=== PATIENT | female | born 1985 | race Two or more races ===

== ENCOUNTER 2021-11-12 15:13 | Emergency (ER) | payer OTHER, SELFPAY ==
--- NOTE | ~2021-11-12 | XR_ITS ---
EXAMINATION: XR CHEST CLINICAL INFORMATION: Chest tightness. COMPARISON: None TECHNIQUE: Frontal view of the chest was obtained. FINDINGS: There is subtle groundglass opacity left infrahilar region likely lingula left upper lobe. There is no air bronchogram or lobar segmental airspace opacity or effusion. The costophrenic sulci are clear. The heart is normal in size. The hilar and mediastinal contours are normal. No pneumothorax or pleural reaction or pneumomediastinum. XR/XR chest 1V IMPRESSION: Subtle groundglass opacity left infrahilar region likely lingula left upper lobe. Lungs otherwise clear.
[2021-11-12 15:49] VITALS: BP 120/77; PULSE 98; RESP 18; TEMP 37.5; O2SAT 98; BMI 25.6
--- NOTE | 2021-11-12 15:52 | ECG_ITS ---
Test Reason : CHEST TIGHTNESS Blood Pressure : / mmHG Vent. Rate : 100 BPM Atrial Rate : 100 BPM P-R Int : 114 ms QRS Dur : 116 ms QT Int : 346 ms P-R-T Axes : 060 078 -04 degrees QTc Int : 446 ms Normal sinus rhythm Right bundle branch block T wave abnormality, consider inferior ischemia Abnormal ECG No previous ECGs available Referred By: Generic ED Physician Electronically Signed By:FLOR MELENDEZ MD
[2021-11-12 17:55] LABS: Eosinophils Percent Auto 0.4 % (0-4); Hematocrit 42.9 % (37.0-47.0); Hemoglobin 14.1 g/dl (12.0-16.0); Lymphocytes Percent Auto 40.7 % (20-40); MANUAL DIFF FLAG SCAN; Mean Corpuscular HGB Conc 32.9 g/dl (31.0-35.0); Mean Corpuscular Hemoglobin 30.3 pg (27.0-33.0); Mean Corpuscular Volume 92.1 fL (80.0-98.0); Mean Platelet Volume 10.5 fL (9.4-12.3); Monocytes Absolute Auto 0.2 X10*3/uL (0.1-1.2); Monocytes Percent Auto 7.4 % (2-11); Neutrophils Absolute Auto 1.3 x10*3/uL (2.0-8.3); Neutrophils Percent Auto 51.5 % (45-73); Platelet Count 166 X10*3/uL (160-400); Red Blood Count 4.66 X10*6/uL (4.20-5.50); SCAN SMEAR FLAG 1
[2021-11-12 17:59] LABS: White Blood Count 2.4 X10*3/uL (4.8-10.8)
[2021-11-12 18:13] LABS: Anion Gap 13 (12-20); Blood Urea Nitrogen 8 mg/dL (9-16); Carbon Dioxide 27 mmol/L (22-29); Chloride 103 mmol/L (96-108); Creatinine Clr Calc Pharmacy 94.6; Estimated Glomerular Filt Rate > 60; Glucose Random 150 mg/dL (60-115); Potassium 3.4 mmol/L (3.3-5.1); SLIDE REVIEW VERIFIED; Sodium 140 mmol/L (135-145)
[2021-11-12 18:16] LABS: Troponin-I High Sensitivity < 3.5 ng/L (<3.5-17.0)
[2021-11-12] MEDS: Acetaminophen 325 MG TABLET 650 MG PO (18:25)
--- NOTE | 2021-11-12 19:29 | ED_ITS ---
HPI - URI/Sore Throat General Chief Complaint: Upper Respiratory Symptoms Stated Complaint: covid + fever cough chest tightness Time Seen by Provider: 11/12/21 19:28 Source: patient Mode of arrival: ambulatory Limitations: no limitations History of Present Illness HPI Narrative: cough, fever and chest tightness. patient has been sick for 7 days and she was tested 5 days ago. Patient states she is breast feeding her daughter. She is not vaccinated. MD elicited complaint: fever, cough and sore throat Onset (ago): day(s) Consistency: constant Severity: mild Associated symptoms: fever, chills and cough Related Data Previous Rx's Medication Instructions Recorded diphenhydramine HCl 25 mg capsule 25 mg PO TID PRN #20 cap 11/12/21 (Benadryl) Allergies Allergy/AdvReac Type Severity Reaction Status Date / Time ciprofloxacin [From Cipro] Allergy Severe complete Verified 05/08/21 17:39 facial swelling Review of Systems Constitutional: Constitutional: Reports no additional constitutional complaints Eyes: Eyes: Reports no additional eye complaints ENT: Denies dizziness Cardiovascular: Cardiovascular: Reports no additional cardiovascular complaints Respiratory: Respiratory: Reports as per HPI Gastrointestinal: Gastrointestinal: Reports no additional gastrointestinal complaints Genitourinary: Genitourinary: Reports no additional female genitourinary complaints Musculoskeletal: Musculoskeletal: Reports no additional musculoskeletal complaints Integumentary/Breasts: Skin/Breast: Denies rash Neurologic: Reports system reviewed and no additional complaints, except as documented, Denies dizziness and Denies Sensory deficit (Neuro) Psychiatric: Psychiatric: Denies anxiety PMFSH Past Medical History Medical History Hypovitaminosis D Surgical History No pertinent past surgical history Family History Family History Mother No problems noted. Father No problems noted. Social History Social History Housing: Apartment Alcohol intake: former Patient Tobacco Use Status: Never used Tobacco e-Cigarette/Vaping Use: Never Used Second Hand Smoke Exposure: No Advance Directives: No Advance Directives Information Provided: Yes service: No Current occupational status: unemployed Physical Exam Vital Signs: Vital Signs: Last Vital Signs Temp 99.5 F 11/12/21 15:49 Pulse 98 11/12/21 15:49 Resp 18 11/12/21 15:49 BP 120/77 11/12/21 15:49 Pulse Ox 98 11/12/21 15:49 BMI result Body Mass Index 25.6 Const: General: healthy appearing Nutritional Appearance: average body habitus Orientation/consciousness: oriented to person and patient oriented x3 Limitations: no limitations HENMT: Head: Yes normal to inspection Ears: external ears normal General nose exam: Normal external nose present Mouth: Normal oral and palatal mucosa present and oropharynx normal Throat: Yes posterior oropharynx normal Eyes: General: appearance normal, both eyes and all related structures Neck: Other: supple Neck: Yes normal visual inspection Chest: Chest palpation & inspection: normal inspection of the chest Resp: Auscultation: clear to auscultation bilaterally Cardio: Jugular venous distension: no JVD Rate: regular rate Rhythm: regular rhythm Heart sounds: S1 normal heart sound present and S2 normal heart sound present GI: Inspection: Yes normal to inspection Palpation (GI): Soft to palpation, nontender and No hepatosplenomegaly present Auscultation: normal bowel sounds : General: Yes no CVA tenderness Back/Spine/Pelvis: Back: no CVA tenderness Skin: General skin exam: no rashes or lesions noted Neuro: General: oriented to person and patient oriented x3 Cranial nerves: Yes CN's II-XII intact bilaterally Motor exam (neuro): 5/5 motor strength present throughout Sensory Exam: No Sensory deficit (Neuro) Extrem: General: Yes normal to inspection Psych: Appearance: grossly normal Course Reevaluation(s) Reevaluation #1: patient with subtle chest xray findings of COVID, however, her vitals and exam are stable. Time: 19:37 MDM - URI/Sore Throat Lab Data Result diagrams: 11/12/21 17:49 11/12/21 17:49 Labs: Lab Results 11/12/21 11/12/21 11/12/21 Range/Units 17:49 17:49 17:49 WBC 2.4 L (4.8-10.8) X10*3/uL RBC 4.66 (4.20-5.50) X10*6/uL Hgb 14.1 (12.0-16.0) g/dl Hct 42.9 (37.0-47.0) % MCV 92.1 (80.0-98.0) fL MCH 30.3 (27.0-33.0) pg MCHC 32.9 (31.0-35.0) g/dl RDW 12.0 (11.0-16.0) % Plt Count 166 (160-400) X10*3/uL MPV 10.5 (9.4-12.3) fL Immature Gran % (Auto) 0.0 (0.0-0.4) % Neut % (Auto) 51.5 (45-73) % Lymph % (Auto) 40.7 H (20-40) % [place] % (Auto) 7.4 (2-11) % Eos % (Auto) 0.4 (0-4) % Baso % (Auto) 0.0 (0-2) % Lymph # (Auto) 1.0 L (1.2-4.9) X10*3/uL [place] # (Auto) 0.2 (0.1-1.2) X10*3/uL Eos # (Auto) 0.0 (0.0-0.4) X10*3/uL Baso # (Auto) 0.0 (0.0-0.2) X10*3/uL Abs Immat Gran (auto) 0.00 (0.00-0.03) X10*3/uL Absolute Neuts (auto) 1.3 L (2.0-8.3) x10*3/uL Absolute Nucleated RBC 0.000 (0.0-0.012) X10*3/uL Nucleated RBC % (auto) 0.0 (0.0-0.2) /100WBC Smear Tech's Comments VERIFIED Sodium 140 (135-145) mmol/L Potassium 3.4 (3.3-5.1) mmol/L Chloride 103 (96-108) mmol/L Carbon Dioxide 27 (22-29) mmol/L Anion Gap 13 (12-20) BUN 8 L (9-16) mg/dL Creatinine 0.74 (0.5-1.4) mg/dL Estim Creat Clear Calc 94.6 Estimated GFR > 60 Random Glucose 150 H (60-115) mg/dL Calcium 9.0 (8.4-10.2) mg/dL Troponin I High Sens < 3.5 (<3.5-17.0) ng/L Imaging Data Chest x-ray: Radiologist's impression: IMPRESSION: Subtle groundglass opacity left infrahilar region likely lingula left upper lobe. Lungs otherwise clear. Discharge Plan Discharge Clinical Impression: COVID-19 Patient Disposition: Home, Self-Care Instructions: COVID-19 (Coronavirus Disease 2019) (ED) Prescriptions: New diphenhydramine HCl [Benadryl] 25 mg capsule 25 mg PO TID PRN (Reason: cough) Qty: 20 RF: 0 Referrals: Ann-Marie Calderon MD [Primary Care Provider] - 10 days
[2021-11-12 20:21] VITALS: BP 108/55; PULSE 84; RESP 18; TEMP 37.6; O2SAT 99
[2021-11-12] MEDS: diphenhydrAMINE HCL 25 MG TABLET PO (20:24)
== END 2021-11-12 20:29 | disposition home or self-care (01) ==
PROVIDERS: Emergency Provider Emergency Medicine; PCP Internal Medicine
DX: U07.1 COVID-19 (principal); R50.9 Fever, unspecified
CPT/HCPCS: 36415; 71045; 80048; 84484; 85025; 93005; 99284; Q0163

== ENCOUNTER 2022-09-03 10:55 | Outpatient (REF) | payer BC, SELFPAY ==
[2022-09-03 18:07] LABS: CT PCR NOT DETECTED (Not Detect.); NG PCR NOT DETECTED (Not Detect.)
[2022-09-04 13:26] LABS: BV Int Neg Control Negative (Negative); BV Int Pos Control Positive (Positive)
== END 2022-09-03 10:56 | disposition home or self-care (01) ==
LOC: HO.LNP 10:55
PROVIDERS: PCP Internal Medicine; Visit Provider Advanced Practice Midwife
DX: O09.299 Supervision of pregnancy with other poor reproductive or obstetric history, unspecified trimester (principal); Z20.2 Contact with and (suspected) exposure to infections with a predominantly sexual mode of transmission; N75.0 Cyst of Bartholin's gland; Z87.59 Personal history of other complications of pregnancy, childbirth and the puerperium
CPT/HCPCS: 81025; 87480; 87491; 87510; 87591; 87660

== ENCOUNTER 2022-09-16 13:35 | Outpatient (REF) | payer BC, SELFPAY ==
--- NOTE | ~2022-09-16 | US_ITS ---
EXAMINATION: US OBSTETRICAL ULTRASOUND CLINICAL INFORMATION: Irregular menstruation. Size and dates COMPARISON: None. LMP: Not known. TECHNIQUE: Ultrasound of the maternal pelvis is performed using transabdominal and transvaginal transducers. Transvaginal imaging is performed due to inadequate visualization transabdominally. M-mode Doppler is also performed. FINDINGS: There is a single intrauterine gestational sac with visible yolk sac, embryo/fetus, and cardiac activity. There is no significant subchorionic hemorrhage or hematoma. HR: 147 beats per minute. CRL (crown rump length): 1.08 cm (7 weeks 2 days +/- 4 days). NANCY (estimated date of delivery): May [id number] +/- 4 days. MATERNAL ADNEXA: The right maternal ovary measures 4.2 x 2.7 x 2.1 cm. There is small amount of free fluid seen adjacent to the right ovary. The left maternal ovary measures 1.8 x 2.1 x 1.4 cm. There is no significant maternal adnexal mass. There is a small amount of fluid in the cul-de-sac. US/US OB <= 14 weeks fetus IMPRESSION: 1. Single intrauterine gestation with ultrasound gestational age of 7 weeks 2 days +/- 4 days. 2. Estimated date of delivery is May 03, 2023 +/- 4 days. 3. No maternal adnexal mass or pelvic ascites.
== END 2022-09-16 13:36 | disposition home or self-care (01) ==
LOC: HO.HMGCX 13:35
PROVIDERS: Visit Provider Advanced Practice Midwife
DX: O09.291 Supervision of pregnancy with other poor reproductive or obstetric history, first trimester (principal); Z3A.01 Less than 8 weeks gestation of pregnancy
CPT/HCPCS: 76801

== ENCOUNTER 2022-09-30 11:51 | Outpatient (REF) | payer BC, SELFPAY ==
[2022-09-30 19:44] LABS: CT PCR NOT DETECTED (Not Detect.); NG PCR NOT DETECTED (Not Detect.)
[2022-10-01 13:07] LABS: BV Int Neg Control Negative (Negative); BV Int Pos Control Positive (Positive)
== END 2022-09-30 11:52 | disposition home or self-care (01) ==
LOC: HO.LNP 11:51
PROVIDERS: Visit Provider Advanced Practice Midwife
DX: N93.9 Abnormal uterine and vaginal bleeding, unspecified (principal)
CPT/HCPCS: 87480; 87491; 87510; 87591; 87660